=== PATIENT | male | born 1975 | race Caucasian/White ===

== ENCOUNTER 2018-07-17 23:32 | Emergency (ER) | payer MEDICARE, MEDICAID, SELFPAY ==
[2018-07-17 23:30] VITALS: BP 132/90; PULSE 115; O2SAT 98
[2018-07-17] MEDS: HALOPERIDOL 5 MG/ML VIAL IM (23:37)
[2018-07-17] MEDS: diphenhydrAMINE 50 MG/ML VIAL IM (23:37)
[2018-07-17] MEDS: LORazepam 2 MG/ML SYRINGE IM (23:37)
--- NOTE | 2018-07-17 23:40 | PC.NURSE ---
attempts at verbal deescalation not effective by provider. Provider placed orders.
--- NOTE | 2018-07-17 23:46 | PC.NURSE ---
Patient laying on mat on floor
--- NOTE | 2018-07-17 23:50 | PC.NURSE ---
pt verbally contracted [employer] to remove handcuffs.
[2018-07-17 23:51] VITALS: BP 139/87; PULSE 108; RESP 12; O2SAT 99
--- NOTE | 2018-07-18 | PC.NURSE ---
patient in room 13 talking with [employer], blood draw
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
--- NOTE | 2018-07-18 00:12 | PC.NURSE ---
drawn by MIKO with provider, this nurse and three [employer] officers in room. [employer] had to restrain pt to facilitate blood draw and ensure pt and staff saftey.
[2018-07-18 00:14] LABS: Add Manual Diff / Slide Review NO; Basophils Absolute Auto 100 /uL (0-100); Basophils Percent Auto 0.5 % (0-2); Eosinophils Absolute Auto 0 /uL (0-450); Eosinophils Percent Auto 0.1 % (2-4); Hematocrit 34.7 % (41-53); Hemoglobin 10.7 g/dL (13.5-17.5); Lymphocytes Absolute Auto 1100 /uL (1100-4500); Lymphocytes Percent Auto 8.7 % (25-40); Mean Corpuscular HGB Conc 30.7 % (30-36); Mean Corpuscular Hemoglobin 23.2 PG (26-34); Mean Corpuscular Volume 75.6 fL (80-100); Monocytes Absolute Auto 600 /uL (0-900); Monocytes Percent Auto 5.1 % (3-14); Neutrophils Absolute Auto 10400 /uL (1500-7000); Neutrophils Percent Auto 85.6 % (50-75); Platelet Count 391 X10^3/uL (150-400); Red Cell Distribution Width 18.2 % (11.6-14.8); White Blood Cell Count 12.2 X10^3/uL (4.5-11.0)
--- NOTE | 2018-07-18 00:17 | ED_ITS ---
HPI - Psych General Chief Complaint: Psychiatric Symptoms Stated Complaint: Involuntary Time Seen by Provider: 07/17/18 23:32 Source: patient, EMS and police Mode of arrival: EMS Limitations: altered mental status History of Present Illness HPI Narrative: 43M smoker presents with EMS and [employer] for evaluation of suicidal ideation. Patient had been drinking tonight and was escalating significantly in became violent, engaging in aggressive behavior with multiple people. He had made comments to various friends throughout the course of the day that he was feeling suicidal am had plenty of pills to make it happen if he wanted to. As the day progressed he apparently told another friend that he wished someone else would put him out of his misery, or something to that effect. These details are through [employer] police and he denies suicidal ideation to me. His psychiatric history is unknown. MD complaint: suicidal ideation Onset (ago): hour(s) Duration: constant and getting worse Relieving factors: none Exacerbating factors: none Context: recent alcohol abuse Associated psychiatric symptoms: depression and suicidal ideation Associated symptoms: denies other symptoms Treatments prior to arrival: none Related Data Allergies Allergy/AdvReac Type Severity Reaction Status Date / Time Penicillins Allergy Unknown Verified 07/18/18 00:51 liquid iron Allergy Uncoded 07/18/18 00:51 Review of Systems Constitutional Denies chills, Denies fever(s), Denies lethargy and Denies weakness Eyes Denies change in vision, Denies eye discharge, Denies irritation and Denies loss of vision ENT Ears, Nose, Mouth, and Throat: Denies change in voice, Denies neck pain and Denies sore throat Cardiovascular Denies chest pain, Denies irregular heart rhythm, Denies lightheadedness, Denies palpitations, Denies dyspnea, Denies dyspnea on exertion and Denies orthopnea Respiratory Denies cough, Denies dyspnea, Denies dyspnea on exertion and Denies wheezing Gastrointestinal Gastrointestinal: Denies abdominal pain, Denies change in bowel habits, Denies diarrhea, Denies nausea and Denies vomiting Genitourinary Denies hematuria, Denies flank pain, Denies urinary incontinence and Denies urinary urgency Musculoskeletal Denies neck pain Integumentary/Breasts Denies pruritus, Denies erythema, Denies rash and Denies wounds Neurologic Denies confusion, Denies loss of vision and Denies weakness Psychiatric Denies anxiety, Denies confusion, Denies depression, Denies homicidal ideation and Reports suicidal ideation Endocrine Denies palpitations Hematologic/Lymphatic Denies easy bruising Allergic/Immunologic Denies wheezing [facility] Medical History Anxiety (Acute) Crohn disease (Acute) Exam Narrative Exam Narrative: GENERAL: 43-year-old male is very aggressive, yelling and screaming and refusing to allow anyone close. He is angry and disheveled HEAD: Atraumatic. Normocephalic. No temporal or scalp tenderness. EYES: Pupils equal round and reactive. Extraocular motions intact. No scleral icterus. No injection or drainage. ENT: Nose without bleeding, purulent drainage or septal hematoma. Throat without erythema, tonsillar hypertrophy or exudate. Uvula midline. Airway patent. NECK: Trachea midline. No JVD or lymphadenopathy. Supple, nontender, no meningeal signs. CARDIOVASCULAR: Regular rate and rhythm without murmurs, gallops, or rubs. RESPIRATORY: Clear to auscultation. Breath sounds equal bilaterally. No wheezes , rales, or rhonchi. Lateral rib pain to palpation GASTROINTESTINAL: Abdomen soft, non-tender, nondistended. No hepato-splenomegaly , or palpable masses. No guarding. EXTREMITIES: No clubbing, cyanosis, or edema. No joint tenderness, effusion, or edema noted. BACK: Nontender without deformity or crepitance. No flank tenderness. NEURO: AOx3. Agitated, aggressive SKIN: No rash or erythema. Initial Vital Signs Initial Vital Signs: Vital Signs Pulse Rate 115 H 07/17/18 23:30 Blood Pressure 132/90 07/17/18 23:30 Pulse Oximetry 98 07/17/18 23:30 Course Orders Ordered: ED Orders 07/17/18 23:55 Acetaminophen Stat Complete Blood Count AUTO DIFF Stat Comprehensive Metabolic Panel Stat Ethanol (ETOH) Stat Salicylate Stat Thyroid Stimulating Hormone Stat 07/18/18 01:15 UA Complete [Urinalysis and Microscopic] Stat Urine Drug Screen, Rapid Stat 07/18/18 05:57 XR ribs RT min 3V w CXR1V Stat Discontinued Medications Diphenhydramine HCl (Benadryl) 50 mg IM NOW ONE Stop: 07/17/18 23:30 Last Admin: 07/17/18 23:37 Dose: 50 mg Haloperidol (Haldol) 5 mg IM NOW ONE Stop: 07/17/18 23:30 Last Admin: 07/17/18 23:37 Dose: 5 mg Lorazepam (Ativan) 2 mg IM NOW ONE Stop: 07/17/18 23:30 Last Admin: 07/17/18 23:37 Dose: 2 mg Oxycodone/Acetaminophen (Endocet 5/325 Prepack) 1 bottle MISC SEEINSTR ONE Stop: 07/18/18 06:21 Last Admin: 07/18/18 06:25 Dose: 1 bottle Reevaluation(s) Reevaluation #1: patient quickly aggressive, refusing any interaction, screaming and resisting any attempt to verbally de-escalate. Decision to chemically restrain after this failed attempt locked restraints removed at [id number] back on restraints as patient tried to elope. We are unable to verbally instruct patient to stay in room. Patient remains high risk. Reevaluation #2: patient resting comfortably Time: 03:41 Vital Signs - 8 hr 07/17/18 23:30 07/17/18 23:51 07/18/18 03:21 Pulse Rate 115 H 108 H Respiratory Rate 12 16 Blood Pressure 132/90 Blood Pressure [Left Arm] 139/87 Pulse Oximetry 98 99 MDM - Psych Medical Records Attestation: I reviewed the patient's medical records. Lab Data Attestation: I reviewed the patient's lab results. Result diagrams: 07/17/18 23:55 07/17/18 23:55 Lab Results 07/17/18 07/17/18 07/17/18 Range/Units 23:55 23:55 23:55 WBC 12.2 H (4.5-11.0) X10^3/uL RBC 4.60 (4.5-5.9) X10^6/uL Hgb 10.7 L (13.5-17.5) g/dL Hct 34.7 L (41-53) % MCV 75.6 L (80-100) fL MCH 23.2 L (26-34) PG MCHC 30.7 (30-36) % RDW 18.2 H (11.6-14.8) % Plt Count 391 (150-400) X10^3/uL Neut % (Auto) 85.6 H (50-75) % Lymph % (Auto) 8.7 L (25-40) % [place] % (Auto) 5.1 (3-14) % Eos % (Auto) 0.1 L (2-4) % Baso % (Auto) 0.5 (0-2) % Neut # (Auto) 04817 H (6533-9022) /uL Lymph # (Auto) 1100 (9557-4818) /uL [place] # (Auto) 600 (0-900) /uL Eos # (Auto) 0 (0-450) /uL Baso # (Auto) 100 (0-100) /uL Sodium 145 (137-145) mmol/L Potassium 4.4 (3.4-5.1) mmol/L Chloride 106 (98-107) mmol/L Carbon Dioxide 25 (22-32) mmol/L BUN 5 L (9-20) mg/dL Creatinine 0.90 (0.66-1.25) mg/dL Estimated GFR > 60.0 (>60) mL/min BUN/Creatinine Ratio 5.6 L (6-22) Glucose 89 (70-100) mg/dL Calcium 8.5 (8.4-10.2) mg/dL Total Bilirubin 0.4 (0.2-1.3) mg/dL AST 62 H (17-59) IU/L ALT 33 (21-72) IU/L Alkaline Phosphatase 502 H (38-126) U/L Total Protein 7.6 (6.3-8.2) g/dL Albumin 3.6 (3.5-5.0) g/dL Globulin 4.0 (1.7-4.1) g/dL Albumin/Globulin Ratio 0.9 L (1.0-2.8) TSH 1.73 (0.47-4.68) uIU/mL Urine Color Urine Appearance Urine pH (4.5-8.0) Ur Specific [place] (1.000-1.035) Urine Protein (Negative) Urine Glucose (UA) (Negative) g/dL Urine Ketones (NEGATIVE) Urine Occult Blood (Negative) Urine Nitrate (Negative) Urine Bilirubin (NEGATIVE) Urine Urobilinogen (0.2) E.U./dL Ur Leukocyte Esterase (NEGATIVE) Urine RBC (0-5/HPF) Urine WBC (0-5/HPF) Urine Bacteria (None) Ur Culture Indicated? Salicylates < 1.0 (<20) mg/dL Urine Opiates Screen (Negative) Ur Oxycodone Screen (Negative) Urine Methadone Screen (Negative) Acetaminophen < 10 L (10-30) ug/mL Ur Barbiturates Screen (Negative) U Tricyclic Antidepress (Negative) Ur Phencyclidine Scrn (Negative) Ur Amphetamines Screen (Negative) U Methamphetamines Scrn (Negative) Ur MDMA Scrn (Ecstasy) (Negative) U Benzodiazepines Scrn (Negative) Urine Cocaine Screen (Negative) U Marijuana (THC) Screen (Negative) Ethyl Alcohol 285 mg/dL 07/18/18 07/18/18 Range/Units 01:15 01:15 WBC (4.5-11.0) X10^3/uL RBC (4.5-5.9) X10^6/uL Hgb (13.5-17.5) g/dL Hct (41-53) % MCV (80-100) fL MCH (26-34) PG MCHC (30-36) % RDW (11.6-14.8) % Plt Count (150-400) X10^3/uL Neut % (Auto) (50-75) % Lymph % (Auto) (25-40) % [place] % (Auto) (3-14) % Eos % (Auto) (2-4) % Baso % (Auto) (0-2) % Neut # (Auto) (7401-3324) /uL Lymph # (Auto) (7206-3327) /uL [place] # (Auto) (0-900) /uL Eos # (Auto) (0-450) /uL Baso # (Auto) (0-100) /uL Sodium (137-145) mmol/L Potassium (3.4-5.1) mmol/L Chloride (98-107) mmol/L Carbon Dioxide (22-32) mmol/L BUN (9-20) mg/dL Creatinine (0.66-1.25) mg/dL Estimated GFR (>60) mL/min BUN/Creatinine Ratio (6-22) Glucose (70-100) mg/dL Calcium (8.4-10.2) mg/dL Total Bilirubin (0.2-1.3) mg/dL AST (17-59) IU/L ALT (21-72) IU/L Alkaline Phosphatase (38-126) U/L Total Protein (6.3-8.2) g/dL Albumin (3.5-5.0) g/dL Globulin (1.7-4.1) g/dL Albumin/Globulin Ratio (1.0-2.8) TSH (0.47-4.68) uIU/mL Urine Color Yellow Urine Appearance Clear Urine pH 6.5 (4.5-8.0) Ur Specific [place] <=1.005 (1.000-1.035) Urine Protein Negative (Negative) Urine Glucose (UA) Negative (Negative) g/dL Urine Ketones Negative (NEGATIVE) Urine Occult Blood Negative (Negative) Urine Nitrate Negative (Negative) Urine Bilirubin Negative (NEGATIVE) Urine Urobilinogen 0.2 (0.2) E.U./dL Ur Leukocyte Esterase Negative (NEGATIVE) Urine RBC None seen (0-5/HPF) Urine WBC None seen (0-5/HPF) Urine Bacteria None seen (None) Ur Culture Indicated? Cult not indicated Salicylates (<20) mg/dL Urine Opiates Screen Negative (Negative) Ur Oxycodone Screen Negative (Negative) Urine Methadone Screen Negative (Negative) Acetaminophen (10-30) ug/mL Ur Barbiturates Screen Negative (Negative) U Tricyclic Antidepress Negative (Negative) Ur Phencyclidine Scrn Negative (Negative) Ur Amphetamines Screen Negative (Negative) U Methamphetamines Scrn Negative (Negative) Ur MDMA Scrn (Ecstasy) Negative (Negative) U Benzodiazepines Scrn Positive H (Negative) Urine Cocaine Screen Negative (Negative) U Marijuana (THC) Screen Positive H (Negative) Ethyl Alcohol mg/dL Point of Care Testing Breathalizer 0.089 Imaging Data Chest x-ray: My impression: multiple rib fractures, B/L. No PTX MDM Narrative Medical decision making narrative: Patient has now achieved clinical sobriety has capacity to make his own decisions. He states he is no longer feeling suicidal and that earlier statements were just made while angry and sad. He requested contact information for care crisis and states his doctor was working on getting him in any way. He only wanted a prepack of Percocet, no Rx Discharge Plan Departure Patient Disposition: Home Clinical Impression: Depression, Alcohol abuse, Fracture, ribs Instructions: DI for Alcohol Abuse Activity Restrictions/Additional Instructions: *You have been diagnosed with [ alcohol abuse, intoxication and depression ] *What to do: * continue to take medications as directed *Follow up with your primary care provider in 2-3 days, call for an appointment. Let them know you were seen in the Emergency Department and that we ask that you be seen in follow up *Return to ER if you should have any new, worsening or concerning symptoms Referrals: Care Crisis Services [Outside] [facility] [Outside] [facility] [Outside]
--- NOTE | 2018-07-18 00:17 | PC.NURSE ---
Pt is now calmly laying on sleeping pad in room 13. Denies needs at this time. Door is unlocked. Pt cooperative.
[2018-07-18 00:28] LABS: HEMOLYSIS < 15 (0-50); Potassium 4.4 mmol/L (3.4-5.1)
[2018-07-18 00:29] LABS: Acetaminophen < 10 ug/mL (10-30); Alanine Aminotransferase 33 IU/L (21-72); Albumin 3.6 g/dL (3.5-5.0); Albumin Globulin Ratio 0.9 (1.0-2.8); Alkaline Phosphatase 502 U/L (38-126); Aspartate Aminotransferase 62 IU/L (17-59); BUN Creatinine Ratio 5.6 (6-22); Bilirubin Total 0.4 mg/dL (0.2-1.3); Blood Urea Nitrogen 5 mg/dL (9-20); Calcium 8.5 mg/dL (8.4-10.2); Carbon Dioxide 25 mmol/L (22-32); Chloride 106 mmol/L (98-107); Estimated Glomerular Filt Rate > 60.0 mL/min (>60); Ethanol (ETOH) 285 mg/dL; Glucose 89 mg/dL (70-100); Salicylate < 1.0 mg/dL (<20); Sodium 145 mmol/L (137-145); Total Protein 7.6 g/dL (6.3-8.2)
--- NOTE | 2018-07-18 00:35 | PC.NURSE ---
0010 Pt provided given paper scrubs and undressed. floor sleeping pad in room. bathroom and call boxes locked.
--- NOTE | 2018-07-18 00:41 | PC.NURSE ---
pt came to open door asking to go home. The care plan was explained to pt. Pt stated I only took like three or five of those pills man. I didn't take the whole bottle. The process was again explained to the pt and the pt asked for a pillow and a large glass of water. both were provided. Pt layed down on sleeping pad and covered self with blanket.
--- NOTE | 2018-07-18 00:44 | PC.NURSE ---
Pt had bowel movement in his pants. Pt given wipes and knit panties. Pt refused help from staff to clean up.
--- NOTE | 2018-07-18 00:53 | PC.NURSE ---
Pt belongings locked in pt belonging locker. Pants, shoes, socks, shirt, sweatshirt, four bottles of medications Buspirone, allopurinol, prednisone, alprazolam.
--- NOTE | 2018-07-18 00:56 | PC.NURSE ---
Patient attempted to elope. Stopped at the back door by this nurse, provider, baltazar Govea and charge nurse. Provider initated locked door restraint.
[2018-07-18 01:07] LABS: Thyroid Stimulating Hormone 1.73 uIU/mL (0.47-4.68)
--- NOTE | 2018-07-18 01:07 | PC.NURSE ---
Pt denied vital signs check at this time. stated you can call my lawer if you wanna do that. Get away from me.
[2018-07-18 01:23] LABS: Appearance Urine UA CLEAR; Bacteria Urine None Seen; Bilirubin Urine UA NEGATIVE (NEGATIVE); Color Urine UA YELLOW; Glucose Urine UA NEGATIVE (Negative); Ketones Urine UA NEGATIVE (NEGATIVE); Leukocyte Esterase Urine UA NEGATIVE (NEGATIVE); Nitrite Urine UA NEGATIVE (Negative); Occult Blood Urine UA NEGATIVE (Negative); Protein Urine UA NEGATIVE (Negative); RBC Urine None Seen (0-5/HPF); Specific Gravity Urine UA <=1.005 (1.000-1.035); Urobilinogen Urine UA 0.2 E.U./dL (0.2); WBC Urine None Seen (0-5/HPF); pH Urine UA 6.5 (4.5-8.0)
[2018-07-18 01:35] LABS: Culture Indicated Urine Cult Not Indicated
--- NOTE | 2018-07-18 01:37 | PC.NURSE ---
patient is resting in bed.
[2018-07-18 01:51] LABS: Urine Amphetamines Negative (Negative); Urine Cocaine Negative (Negative); Urine MDMA Negative (Negative); Urine Methamphetamines Negative (Negative); Urine Morphine/Opi cutoff 2000 Negative (Negative); Urine Phencyclidine Negative (Negative); Urine THC Positive (Negative)
[2018-07-18 01:52] LABS: Urine Barbiturates Negative (Negative); Urine Benzodiazepines Positive (Negative); Urine Methadone Negative (Negative); Urine Oxycodone Negative (Negative); Urine Tricyclic Antidepressant Negative (Negative)
--- NOTE | 2018-07-18 02:29 | PC.NURSE ---
0230 Patient's chest moving up and down. Moving around in bed. Has warm blankets.
--- NOTE | 2018-07-18 02:44 | PC.NURSE ---
Patient is resting on mattress.
--- NOTE | 2018-07-18 03:05 | PC.NURSE ---
Patient resting on mattress. Covered in blankets. Blankets moving up and down equally.
--- NOTE | 2018-07-18 03:15 | PC.NURSE ---
Patient is resting on bed.
[2018-07-18 03:21] VITALS: RESP 16
--- NOTE | 2018-07-18 03:32 | PC.NURSE ---
Patient resting on bed.
--- NOTE | 2018-07-18 03:44 | PC.NURSE ---
Patient resting on bed.
--- NOTE | 2018-07-18 04:00 | PC.NURSE ---
Patient resting on mattress.
--- NOTE | 2018-07-18 04:15 | PC.NURSE ---
Patient resting in bed. He is breathing unlabored.
--- NOTE | 2018-07-18 04:30 | PC.NURSE ---
Patient resting on mattress with blankets covering him.
--- NOTE | 2018-07-18 04:46 | PC.NURSE ---
patient sleeping on bed.
--- NOTE | 2018-07-18 05:06 | PC.NURSE ---
Patient resting on mattress.
--- NOTE | 2018-07-18 05:15 | PC.NURSE ---
Pt sleeping on pad in room. allowed to sleep.
--- NOTE | 2018-07-18 05:57 | DI.RAD.S_ITS ---
PROCEDURE: XR RIBS RT MIN 3V W CXR 1V INDICATIONS: Right rib pain TECHNIQUE: 3 views of the right ribs were acquired, along with a single view chest. COMPARISON: None. FINDINGS: Surgical changes and devices: None. Bones and chest wall: Mildly displaced anterolateral right eighth rib acute fracture is noted. Left sixth, seventh, eighth and ninth rib fractures are noted of indeterminate age. Overlying soft tissues appear unremarkable. Lungs and pleura: No pleural effusions or pneumothorax. Lungs appear clear. Mediastinum: Mediastinal contours appear normal. Heart size is normal. IMPRESSION: 1. Acute right eighth rib fracture. 2. Left sixth, seventh, eighth and ninth rib fractures of indeterminate age. Dictated by: Lizeth Frank MD, PhD on 07/18/2018 at 9:21 Approved by: Lizeth Frank MD, PhD on 07/18/2018 at 9:23
--- NOTE | 2018-07-18 06:15 | PC.NURSE ---
Pt reports right rib pain. provider notified, order for xray recieved.
--- NOTE | 2018-07-18 06:22 | PC.NURSE ---
this nurse and [employer] research associate Xuan Pereira present when pt clearly stated I was just feeling sad, I don't want to kill myself. I talked to my doctor and he's getting me somebody to talk to. Pt is thankful for staff help.
[2018-07-18] MEDS: OXYCODONE/APAP 5/325 PREPACK 1 BOTTLE MISC (06:25)
--- NOTE | 2018-07-18 06:28 | PC.NURSE ---
Provider assesed pt and wrote for discharge. Pt was given belongings and provided a phone to call for a ride home. Pt is thankful for our help and tearfull about his situation. Pt provded contact info for 24hr crisis help line. Pt is thankful for this help.
[2018-07-18 06:32] VITALS: BP 148/88; PULSE 97; RESP 16; O2SAT 99
== END 2018-07-18 06:36 | disposition home or self-care (01) ==
PROVIDERS: Emergency Provider Emergency Medicine
DX: F41.9 Anxiety disorder, unspecified (principal); F10.10 Alcohol abuse, uncomplicated; S22.39XA Fracture of one rib, unspecified side, initial encounter for closed fracture
CPT/HCPCS: 36415; 71101; 80053; 80305; 80320; 80329; 81001; 82075; 84443; 85025; 96372; 99285; G0480; J1200; J1630; J2060

== ENCOUNTER 2022-03-09 22:29 | Emergency (ER) | payer MEDICARE, MEDICAID, SELFPAY ==
[2022-03-09 22:50] VITALS: BP 121/76; PULSE 77; RESP 18; TEMP 36.7; O2SAT 99; BMI 25.8
--- NOTE | 2022-03-09 22:56 | PC.NURSE ---
Pt endorses drinking 8 beers today.
--- NOTE | 2022-03-09 23:31 | PC.NURSE ---
went in to assess pt, pt is stumbling around room and immediately requested a new marker for the white board so he can draw. told pt i will look for one but had a few questions first. asked pt why he is here, pt lifted up bandaid on his stomach and showed a small wound, surrounding tissue very red. pt also spoke about his bilateral hernias. pt admitted he has a drinking problem. when asked when he last drank, he states 4 hrs ago he had 10 beers. 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 pt then asked for water to drink. told pt i would speak with MD about his issues and try and find a new white board pen for him. pt told he needs to stay in his room and wait for me to return. Pt then stated he had medications in his bag and i should take that. when clarifying if i should take his bag, pt then said dont touch my bag, my aunt is my bed and breakfast cook and she will sadie you for me because she is a nurse of 25years. pt informed i would not take his bag unless he wanted me too. pt asked if he would be taking any medications while here, pt said no. upon leaving room to [facility], pt came out of room asking for water to drink. pt told i was going to speak with MD about water, pt returned to his room. pt then immediately came back out of his room and started to wander into other pt rooms. pt directed back into his own room and told he cannot go into other rooms. pt then asked for another drink, pt informed i was trying to speak with MD but he kept coming out of his room and i cannot speak to MD if i am with pt. Pt states i have water in my bag, pt told he cannot drink water until MD sees him. pt asked if he could have gum, pt then proceeded to pull out water bottle. pt informed again he should not drink and pt said screw you watch me. and drank from water bottle. told pt i would inform MD he is drinking and pt states go ahead, i am about to teach him and thing or two. when asked to clarify what this means, pt stated i know more about Crohn's disease than the doctor and am i gonna teach him about it.
--- NOTE | 2022-03-10 00:07 | PC.NURSE ---
Pt came out to nurses station despite being told multiple times by several staff members not to come out of his room to talk to somebody competent while pointing at this RN. Pt informed that all nurses in the department have passed various competency exams and have been deemed competent to care for pts in this department. Pt informed that he is continuously being rude and insulting to staff members and this behavior will not be tolerated. Pt then returned to his room to continue waiting for physician to assess him.
--- NOTE | 2022-03-10 00:12 | DI.CT.S_ITS ---
PROCEDURE: CT ABDOMEN PELVIS W CON INDICATIONS: abdominal pain, wound drainage, hx crohn's TECHNIQUE: After the administration of intravenous contrast, axial sections acquired from the lung bases to the pubic symphysis. Coronal and sagittal reformats were performed. For radiation dose reduction, the following was used: automated exposure control, adjustment of mA and/or kV according to patient size. COMPARISON: [facility], CT, CT ABDOMEN PELVIS WITH CONTRAST, 07/28/2021, 16:36. [facility], CT, CT ABDOMEN PELVIS WITH CONTRAST, 12/31/2021, 18:29. FINDINGS: Image quality: Excellent. Lung bases: Unremarkable. Heart: No significant findings. ABDOMEN: Liver: The liver is evaluated in a different state of enhancement than the study from 12/31/21 and there appears to be 2 small hepatic hemangiomas, 1 adjacent to the inferior margin of the gallbladder fossa seen on series 2, image 39 as an ovoid hyperenhancing structure at the hepatic capsular margin measuring slightly under 1 cm and the 2nd at the posterolateral subcapsular hepatic parenchyma of the right posterior hepatic segment seen on series 2, image 33 and measuring 1.1 cm in maximal dimension. It also is enhancing.. Gallbladder: Unremarkable. Biliary ducts: Unremarkable. Pancreas: Unremarkable. Spleen: Unremarkable. Adrenal Glands: Unremarkable. Kidneys and Ureters: Unremarkable. Stomach and Bowel: Stomach and small bowel loops appear normal. There has been a prior right hemicolectomy, and what appears to be anastomotic junction between the small bowel and remaining colon is centered at the midline, posterior to an area soft tissue thickening that extends from the anastomotic margin anteriorly to the skin surface. An abscess in this area is not identified, but this also was present during prior CT scanning late December of this year. Peritoneum: No abnormal intraperitoneal fluid. No free air. Ventral Wall: No hernias. Abdominal Nodes: No retroperitoneal or mesenteric adenopathy by size criteria. Vessels: Aorta and inferior vena cava are normal in size. PELVIS: Pelvic Organs: Unremarkable. Bladder: Unremarkable. Pelvic Nodes: No enlarged lymph nodes. Miscellaneous: No hernias are seen. Bones: Unremarkable. IMPRESSION: 1. Prior right hemicolectomy. 2. Ileocolonic anastomosis appears located at the midline of the upper abdomen, below the axial level of the gallbladder fossa. An inflammatory process extends from this area anteriorly to the skin surface, but currently gas bubbles or rim enhancing fluid is not associated. However, episodic anastomotic inflammation may explain the inflammatory changes in that area and the prior report of fluid extending to the skin surface in that area on prior CT scanning from 12/31/21. 3. The liver currently is visualized at a phase of enhancement that allows clear visualization of 2 separate small ovoid peripheral hepatic subcapsular structures that likely represent unilocular hemangiomas. These are small, measuring just under and just over 1 cm in maximal dimension respectively. These can be seen on prior CT scanning also. Dictated by: Cortez Millan M.D. on 03/10/2022 at 1:19 Approved by: Cortez Millan M.D. on 03/10/2022 at 1:29
[2022-03-10 00:40] LABS: Add Manual Diff / Slide Review NO; Basophils Absolute Auto 100 /uL (0-100); Basophils Percent Auto 0.9 % (0-2); Eosinophils Absolute Auto 500 /uL (0-450); Eosinophils Percent Auto 3.9 % (2-4); Hematocrit 36.2 % (41-53); Hemoglobin 11.8 g/dL (13.5-17.5); Lymphocytes Absolute Auto 2600 /uL (1100-4500); Lymphocytes Percent Auto 21.7 % (25-40); Mean Corpuscular HGB Conc 32.6 % (30-36); Mean Corpuscular Hemoglobin 26.4 PG (26-34); Mean Corpuscular Volume 80.8 fL (80-100); Monocytes Absolute Auto 500 /uL (0-900); Monocytes Percent Auto 4.1 % (3-14); Neutrophils Absolute Auto 8300 /uL (1500-7000); Neutrophils Percent Auto 69.4 % (50-75); Platelet Count 504 X10^3/uL (150-400); Red Blood Cell Count 4.47 X10^6/uL (4.5-5.9); Red Cell Distribution Width 20.1 % (11.6-14.8); White Blood Cell Count 11.9 X10^3/uL (4.5-11.0)
[2022-03-10 00:40] LABS: Appearance Urine UA CLEAR; Bilirubin Urine UA NEGATIVE (NEGATIVE); Color Urine UA YELLOW; Glucose Urine UA NEGATIVE (Negative); Ketones Urine UA NEGATIVE (NEGATIVE); Leukocyte Esterase Urine UA NEGATIVE (NEGATIVE); Nitrite Urine UA NEGATIVE (Negative); Occult Blood Urine UA NEGATIVE (Negative); Protein Urine UA NEGATIVE (Negative); Specific Gravity Urine UA <=1.005 (1.000-1.035); Urobilinogen Urine UA 0.2 E.U./dL (0.2)
--- NOTE | 2022-03-10 00:46 | ED_ITS ---
HPI - Skin/Abscess/Foreign Bdy General Chief complaint: Skin/Abscess/Foreign Body Stated complaint: Krohns disease flare up Time Seen by Provider: 03/09/22 23:11 Source: patient Mode of arrival: Ambulatory Limitations: no limitations History of Present Illness HPI narrative: 46-year-old male nonsmoker with history of alcohol abuse, PTSD and Crohn's presents for evaluation of worsening pain over the past few days. He states that he has had significant worsening in redness and pain of his central abdomen and that he is had the leakage of purulent fluid from a small ?hole? over that time. He denies nausea or vomiting. He denies any change in bowel habits and has had no dysuria, frequency or urgency. He is had no chest pain or shortness of breath. He denies runny nose, sneezing, sore throat or cough. Patient is managed by GI at [facility] Related Data Previous Rx's Medication Instructions Recorded ciprofloxacin HCl 500 mg tablet 500 mg PO BID #20 tabs 03/10/22 (Cipro) metronidazole 500 mg tablet 500 mg PO TID 10 days #30 tabs 03/10/22 Allergies Allergy/AdvReac Type Severity Reaction Status Date / Time Penicillins Allergy Unknown Verified 07/18/18 00:51 iron Allergy Verified 07/18/18 06:37 liquid iron Allergy Uncoded 07/18/18 00:51 Review of Systems Review of Systems Narrative: GENERAL: Denies chills, fatigue, malaise, fever, sweats. HEENT: Denies sinus pain, ear pain, sore throat, difficulty swallowing, dizziness. RESPIRATORY: Denies dyspnea, cough, wheezing, hemoptysis, sputum. CARDIOVASCULAR: Denies chest pain, palpitations, orthopnea, edema, GASTROINTESTINAL: See HPI : Denies dysuria, frequency, incontinence, hematuria, urinary retention. MUSCULOSKELETAL: denies weakness, joint pain, or bony pain SKIN: Denies rash, skin lesions, or other NEUROLOGIC: Denies weakness, headache, numbness, change in speech, confusion, seizures, incoordination. PSYCHIATRIC: No concerning psychosocial issues. 12 point review of systems is negative except for those stated above Patient History Medical History (Updated 03/10/22 @ 03:02 by Phuc Carlisle DO) Anxiety Crohn disease Social History (Reviewed 03/10/22 @ 00:48 by PIYUSH De León Smoking Status: Never smoker Smoking Status: Never smoker alcohol intake frequency: 3 or more drinks per day Alcohol type: beer Substance Use Type: does not use Exam Narrative Exam Narrative: GENERAL: [46] year old patient appears stated age. Well-developed patient, in mild distress. HEAD: Atraumatic. Normocephalic. EYES: Pupils equal round and reactive. Extraocular motions intact. No scleral icterus. No injection or drainage. ENT: Nose without bleeding, purulent drainage. Throat without erythema, tonsillar hypertrophy or exudate. Airway patent. NECK: Trachea midline. Non tender CARDIOVASCULAR: Regular rate and rhythm without murmurs, gallops, or rubs. RESPIRATORY: Clear to auscultation. Breath sounds equal bilaterally. No wheezes, rales, or rhonchi. GASTROINTESTINAL: Abdomen soft, central area of erythema, warmth and tenderness with prior scarring, 1 small spontaneously draining abscess or fistula, purulent drainage, culture sent to lab EXTREMITIES: No edema or joint tenderness. BACK: Nontender without deformity or crepitance. No flank tenderness. NEURO: AOx3. SKIN: No rash or erythema of visible areas Initial Vital Signs Initial Vital Signs: Vital Signs Temperature 98.1 F 03/09/22 22:50 Pulse Rate 77 03/09/22 22:50 Respiratory Rate 18 03/09/22 22:50 Blood Pressure 121/76 03/09/22 22:50 Pulse Oximetry 99 03/09/22 22:50 Oxygen Delivery Method 03/09/22 22:50 Course Orders Ordered: ED Orders 03/09/22 23:59 Urinalysis and Microscopic Stat 03/10/22 00:10 Wound Culture and Gram Stain Stat 03/10/22 00:12 CT abdomen pelvis w con Stat 03/10/22 00:22 Complete Blood Count AUTO DIFF Stat Comprehensive Metabolic Panel Stat Levofloxacin (Levaquin) 750 mg in 150 mls @ 100 mls/hr IV NOW ONE Stop: 03/10/22 03:25 Discontinued Medications Sodium Chloride (Normal Saline 0.9%) 1,000 mls @ 1,000 mls/hr IV BOLUS ONE Stop: 03/10/22 01:11 Last Infusion: 03/10/22 02:07 Dose: 0 mls/hr Documented By: Admin: 03/10/22 01:03 Dose: 1,000 mls/hr Documented By: NR Metronidazole (Flagyl) 500 mg in 100 mls @ 100 mls/hr IV NOW ONE Stop: 03/10/22 02:55 Last Admin: 03/10/22 02:10 Dose: 100 mls/hr Documented By: CAPRICE Lorazepam (Lorazepam 2 Mg/Ml Inj) 1 mg IV NOW ONE Stop: 03/10/22 00:13 Last Admin: 03/10/22 01:03 Dose: 1 mg Documented By: NR Consultations Consultation #1: Discussed with on-call surgery (Vicente). We had a lengthy discussion about the patient's history and physical exam as well as labs and imaging. He states that the patient has had a known enterocutaneous fistula for many months and it is actually greatly improved over how it had been. He recommends against any significant intervention and suggest that outpatient antibiotic treatment and close follow-up with his GI docs at [facility] Consultation #2: Discussed with Dr. Martínez (GI at [facility]) who has no recommendations for medication alterations, also reiterates the need for follow-up with her group in clinic to discuss options Vital Signs Vital signs: Vital Signs - 8 hr 03/09/22 22:50 03/10/22 01:05 03/10/22 01:30 Temperature 98.1 F Pulse Rate 77 60 Respiratory Rate 18 Blood Pressure 121/76 Pulse Oximetry 99 100 100 Oxygen Delivery Method Room Air 03/10/22 02:00 03/10/22 02:30 Temperature Pulse Rate 69 60 Respiratory Rate Blood Pressure Pulse Oximetry 99 100 Oxygen Delivery Method MDM - Skin/Abscess/Foreign Bdy Lab Data Result diagrams: 03/10/22 00:22 03/10/22 00:22 Labs: Lab Results 03/09/22 03/10/22 03/10/22 Range/Units 23:59 00:22 00:22 WBC 11.9 H (4.5-11.0) X10^3/uL RBC 4.47 L (4.5-5.9) X10^6/uL Hgb 11.8 L (13.5-17.5) g/dL Hct 36.2 L (41-53) % MCV 80.8 (80-100) fL MCH 26.4 (26-34) PG MCHC 32.6 (30-36) % RDW 20.1 H (11.6-14.8) % Plt Count 504 H (150-400) X10^3/uL Neut % (Auto) 69.4 (50-75) % Lymph % (Auto) 21.7 L (25-40) % [place] % (Auto) 4.1 (3-14) % Eos % (Auto) 3.9 (2-4) % Baso % (Auto) 0.9 (0-2) % Neut # (Auto) 8300 H (2413-0085) /uL Lymph # (Auto) 2600 (9016-6844) /uL [place] # (Auto) 500 (0-900) /uL Eos # (Auto) 500 H (0-450) /uL Baso # (Auto) 100 (0-100) /uL RBC Morphology See below Anisocytosis 1+ H Sodium 138 (137-145) mmol/L Potassium 4.6 (3.4-5.1) mmol/L Chloride 103 (98-107) mmol/L Carbon Dioxide 24 (22-32) mmol/L BUN 4 L (9-20) mg/dL Creatinine 0.62 L (0.66-1.25) mg/dL Estimated GFR > 60 (>60) mL/min BUN/Creatinine Ratio 6.5 (6-22) Glucose 76 (70-100) mg/dL Calcium 7.9 L (8.4-10.2) mg/dL Total Bilirubin 0.4 (0.2-1.3) mg/dL AST 38 (17-59) IU/L ALT 16 (<50) IU/L Alkaline Phosphatase 288 H (38-126) U/L Total Protein 7.9 (6.3-8.2) g/dL Albumin 3.6 (3.5-5.0) g/dL Globulin 4.3 H (1.7-4.1) g/dL Albumin/Globulin Ratio 0.8 L (1.0-2.8) Urine Color Yellow Urine Appearance Clear Urine pH 5.0 (4.5-8.0) Ur Specific [place] <=1.005 (1.000-1.035) Urine Protein Negative (Negative) Urine Glucose (UA) Negative (Negative) g/dL Urine Ketones Negative (NEGATIVE) Urine Occult Blood Negative (Negative) Urine Nitrate Negative (Negative) Urine Bilirubin Negative (NEGATIVE) Urine Urobilinogen 0.2 (0.2) E.U./dL Ur Leukocyte Esterase Negative (NEGATIVE) Urine RBC None seen (0-5/HPF) Urine WBC None seen (0-5/HPF) Urine Bacteria None seen (None) Ur Culture Indicated? Cult not indicated Micro UA Comment Microscopic normal Imaging Data CT scan - abdomen/pelvis: Radiologist's Impression: Close Abdomen/Pelvis CT (Signed) Cortez Millan - 03/10/22 Ribs X-Ray (Signed) Lizeth Frank - 07/18/18 Launch?[address] [address] [address] Scan Report Signed Patient: Elijah Storm MR#: [id number] : 1975 Acct:[id number] Age/Sex: 46 / M Date of Service: 03/10/22 Loc: ED Accession Number: [id number] ?? Procedure: CT abdomen pelvis w con Ordering Provider: Phuc Carlisle D.O. PROCEDURE:? CT ABDOMEN PELVIS W CON ? INDICATIONS:? abdominal pain, wound drainage, hx crohn's ? TECHNIQUE:? After the administration of intravenous contrast, axial sections acquired from t he lung bases to the pubic symphysis.? Coronal and sagittal reformats were performed.? For radiation dose reduction, the following was used:? automated exposure control, adjustment of mA and/or kV according to patient size.? ? COMPARISON:? [facility], CT, CT ABDOMEN PELVIS WITH CONTRAST, 07/28/2021, 16:36.? [facility], CT, CT ABDOMEN PELVIS WITH CONTRAST, 12/31/2021, 18:29. ? FINDINGS:? Image quality:? Excellent.? ? Lung bases:? Unremarkable. Heart:? No significant findings. ? ABDOMEN: Liver:? The liver is evaluated in a different state of enhancement than the study from 12/31/21 and there appears to be 2 small hepatic hemangiomas, 1 adjacent to the inferior margin of the gallbladder fossa seen on series 2, image 39 as an ovoid hyperenhancing structure at the hepatic capsular margin measuring slightly under 1 cm and the 2nd at the posterolateral subcapsular hepatic parenchyma of the right posterior hepatic segment seen on series 2, image 33 and measuring 1.1 cm in maximal dimension.? It also is enhancing..? ? Gallbladder:? Unremarkable.? ? Biliary ducts:? Unremarkable.? ? Pancreas:? Unremarkable.? ? Spleen:? Unremarkable.? ? Adrenal Glands:? Unremarkable.? ? Kidneys and Ureters:? Unremarkable.? ? ? Stomach and Bowel:? Stomach and small bowel loops appear normal.? There has been a prior right hemicolectomy, and what appears to be anastomotic junction between the small bowel and remaining colon is centered at the midline, posterior to an area soft tissue thickening that extends from the anastomotic margin anteriorly to the skin surface.? An abscess in this area is not identified, but this also was present during prior CT scanning late December of this year. Peritoneum:? No abnormal intraperitoneal fluid.? No free air.? ? Ventral Wall: ? No hernias.? Abdominal Nodes:? No retroperitoneal or mesenteric adenopathy by size criteria.? Vessels:? Aorta and inferior vena cava are normal in size.? ? PELVIS: Pelvic Organs:? Unremarkable.? ? Bladder:? Unremarkable.? ? Pelvic Nodes: No enlarged lymph nodes.? Miscellaneous: No hernias are seen. ? ? ? Bones:? Unremarkable.? IMPRESSION:? ? 1.? Prior right hemicolectomy. ? 2.? Ileocolonic anastomosis appears located at the midline of the upper abdomen, below the axial level of the gallbladder fossa.? An inflammatory process extends from this area anteriorly to the skin surface, but currently gas bubbles or rim enhancing fluid is not associated.? However, episodic anastomotic inflammation may explain the inflammatory changes in that area and the prior report of fluid extending to the skin surface in that area on prior CT scanning from 12/31/21. ? 3.? The liver currently is visualized at a phase of enhancement that allows clear visualization of 2 separate small ovoid peripheral hepatic subcapsular structures that likely represent unilocular hemangiomas.? These are small, measuring just under and just over 1 cm in maximal dimension respectively.? These can be seen on prior CT scanning also.? ? ? Dictated by: Cortez Millan M.D. on 03/10/2022 at 1:19 ? ? Approved by: Cortez Millan M.D. on 03/10/2022 at 1:29 ? MDM Narrative Medical decision making narrative: Patient with chronic medical problems presents for evaluation of drainage from a known enterocutaneous fistula. He has very minimal if any pain, labs and imaging are reassuring. I have spoken with both his managing surgical team as well as Gastroenterology, both recommend a 10-14 day course of Cipro and Flagyl and close follow-up with GI to discuss options for ongoing Remicade or under immunotherapy. Patient given extensive return precautions and questions answered to his apparent satisfaction Discharge Plan Departure Patient Disposition: Home Clinical Impression: Enterocutaneous fistula, Crohn's colitis Instructions: DI for Crohn Disease Activity Restrictions/Additional Instructions: *You have been diagnosed with [Crohn's disease with chronic enterocutaneous fistula. As we discussed your history and physical exam as well as labs and imaging are reassuring, particularly after discussing with your care team including General surgery as well as Gastroenterology] *What to do: *Please continue to take your regular medications as directed. [x] New medication prescriptions sent to your pharmacy: [ [facility]] [ ] New medication written as a paper prescription [ ] No new medications given *Please follow up with Dr. Gardiner (GI at [facility]), call for an appointment. Let them know you were seen in the Emergency Department and that we ask that you be seen in follow up. We will electronically transmit a record of today's note *Return to Emergency Department if you should have any new, worsening or concerning symptoms, such as [fever greater than 101 F, shaking chills, worsening pain, persistent vomiting or other bothersome symptoms] Prescriptions: New ciprofloxacin HCl [Cipro] 500 mg tablet 500 mg PO BID Qty: 20 0RF metronidazole 500 mg tablet 500 mg PO TID 10 Days Qty: 30 0RF
[2022-03-10 00:48] LABS: Bacteria Urine None Seen; Culture Indicated Urine Cult Not Indicated; RBC Urine None Seen (0-5/HPF); Urine Comments Microscopic Normal; WBC Urine None Seen (0-5/HPF)
[2022-03-10] MEDS: LORazepam 2 MG/ML INJ 1 MG IV (01:03)
[2022-03-10] MEDS: SODIUM CHLORIDE 0.9% 1,000 ML 1000 ML IV (01:03)
[2022-03-10 01:05] VITALS: PULSE 60; O2SAT 100
[2022-03-10 01:11] LABS: Anisocytosis 1+
[2022-03-10 01:27] LABS: Alanine Aminotransferase 16 IU/L (<50); Albumin 3.6 g/dL (3.5-5.0); Albumin Globulin Ratio 0.8 (1.0-2.8); Alkaline Phosphatase 288 U/L (38-126); Aspartate Aminotransferase 38 IU/L (17-59); BUN Creatinine Ratio 6.5 (6-22); Bilirubin Total 0.4 mg/dL (0.2-1.3); Blood Urea Nitrogen 4 mg/dL (9-20); Calcium 7.9 mg/dL (8.4-10.2); Carbon Dioxide 24 mmol/L (22-32); Chloride 103 mmol/L (98-107); Estimated Glomerular Filt Rate > 60 mL/min (>60); Globulin 4.3 g/dL (1.7-4.1); Glucose 76 mg/dL (70-100); HEMOLYSIS 16 (0-50); Potassium 4.6 mmol/L (3.4-5.1); Sodium 138 mmol/L (137-145); Total Protein 7.9 g/dL (6.3-8.2)
[2022-03-10 01:30] VITALS: O2SAT 100
[2022-03-10 02:00] VITALS: PULSE 69; O2SAT 99
[2022-03-10] MEDS: metroNIDAZOLE 500 MG/100 ML PIGGYBACK 100 MG IV (02:10)
--- NOTE | 2022-03-10 02:15 | PC.NURSE ---
Pt states you might need or want to just sedate me. This RN asked why this may be. Pt states Because I will do whatever to get some water when I want it even though I'm not supposed to. Pt informed of why he is NPO but no evidence of learning noted. New IV placed since pt had removed his first IV.
--- NOTE | 2022-03-10 02:17 | PC.NURSE ---
This RN entered pt room to administer antibiotics per SEP and found pt IV had been removed by pt. Pt states this likely happened when rolling over in his sleep. Pt IV site had already been covered with gauze and tape. New IV to be established.
[2022-03-10 02:30] VITALS: PULSE 60; O2SAT 100
[2022-03-10 03:50] VITALS: PULSE 85; RESP 17; O2SAT 97
--- NOTE | 2022-03-25 16:45 | PC.NURSE ---
Late entry: per primary RN: Anamika completed at 0310, no ill effect.
== END 2022-03-10 03:50 | disposition home or self-care (01) ==
PROVIDERS: Emergency Provider Emergency Medicine
DX: K63.2 Fistula of intestine (principal); K50.10 Crohn's disease of large intestine without complications
CPT/HCPCS: 74177; 80053; 81001; 85025; 87070; 87075; 87077; 87147; 87186; 87205; 96361; 96365; 96375; 99284; J2060; Q9967